=== PATIENT | female | born 1950 | race Caucasian/White ===

== ENCOUNTER 2016-12-11 22:31 | Emergency (ER) | payer BC, OTHER ==
[2016-12-11 22:48] VITALS: BP 124/73; PULSE 64; TEMP 98.3; BMI 28.8
--- NOTE | 2016-12-11 23:10 | PDOC ---
[id number] No Limitations - History of Present Illness Initial Comments: 12/12/16 00:19 Patient is a 66 year old female with no past significant medical history who presents to the ED with right foot laceration. Patient states that she was barefoot in the kitchen taking a plate out of the cabinet as it fell and broke on the counter and pieces of the plate hit the top of her right foot. Patient was able to control bleeding. Patient has no other complaints. She denies fever, chills, chest pain, SOB, diarrhea or hematochezia. <Mamta Bailey - Last Filed: 12/12/16 02:09> <Rina Maldonado - Last Filed: 12/12/16 04:21> - General Chief Complaint: Injury Stated Complaint: LAC TO FOOT Past History <Mamta Bailey - Last Filed: 12/12/16 02:09> - Past Medical History Cardiac Disorders: Yes (cardiac cath x2 2011 and 2015 negative) Diabetes: (early onset) Other medical history: myastenia gravis - Psycho/Social/Smoking Cessation Hx Suicidal Ideation: No Smoking History: Never smoked Hx Alcohol Use: No Drug/Substance Use Hx: No <Rina Maldonado - Last Filed: 12/12/16 04:21> - Past Medical History Allergies/Adverse Reactions: Allergies Allergy/AdvReac Type Severity Reaction Status Date / Time No Known Allergies Allergy Verified 12/11/16 22:49 Home Medications: Ambulatory Orders Prednisone 10 mg PO DAILY 12/11/16 Pyridostigmine [place] [Mestinon] 60 mg PO DAILY 12/11/16 Bacitracin - [Bacitracin Topical Ointment -] 1 applic TP BID #10 g 12/12/16 Cephalexin Monohydrate [Keflex -] 250 mg PO Q6H #28 capsule 12/12/16 Review of Systems - Review of Systems Able to Perform ROS?: Yes Comments:: 12/12/16 00:20 GENERAL/CONSTITUTIONAL: No fever or chills. No weakness. HEAD, EYES, EARS, NOSE AND THROAT: No change in vision. No ear pain or discharge. No sore throat. CARDIOVASCULAR: No chest pain or shortness of breath. RESPIRATORY: No cough, wheezing, or hemoptysis. GASTROINTESTINAL: No nausea, vomiting, diarrhea or constipation. GENITOURINARY: No dysuria, frequency, or change in urination. MUSCULOSKELETAL: No joint or muscle swelling or pain. No neck or back pain. SKIN: +laceration to the right foot. No rash NEUROLOGIC: No headache, vertigo, loss of consciousness, or change in strength/ sensation. ENDOCRINE: No increased thirst. No abnormal weight change. HEMATOLOGIC/LYMPHATIC: No anemia, easy bleeding, or history of blood clots. ALLERGIC/IMMUNOLOGIC: No hives or skin allergy. <Mamta Bailey - Last Filed: 12/12/16 02:09> *Physical Exam - Vital Signs Last Vital Signs Temp Pulse Resp BP Pulse Ox 98.3 F 64 18 124/73 99 12/11/16 22:31 12/11/16 22:31 12/11/16 22:31 12/11/16 22:31 12/11/16 22:31 - Physical Exam Comments: 12/12/16 00:20 GENERAL: Awake, alert, and fully oriented, in no acute distress HEAD: No signs of trauma EYES: PERRLA, EOMI, sclera anicteric, conjunctiva clear ENT: Auricles normal inspection, hearing grossly normal, nares patent, oropharynx clear without exudates. Moist mucosa NECK: Normal ROM, supple, no lymphadenopathy, JVD, or masses LUNGS: Breath sounds equal, clear to auscultation bilaterally. No wheezes, and no crackles HEART: Regular rate and rhythm, normal S1 and S2, no murmurs, rubs or gallops ABDOMEN: Soft, nontender, normoactive bowel sounds. No guarding, no rebound. No masses EXTREMITIES: +small laceration to the top of right foot. Normal range of motion , no edema. No clubbing or cyanosis. No cords, erythema, or tenderness NEUROLOGICAL: Cranial nerves II through XII grossly intact. Normal speech, normal gait SKIN: Warm, Dry, normal turgor, no rashes. <Mamta Bailey - Last Filed: 12/12/16 02:09> - Vital Signs Last Vital Signs Temp Pulse Resp BP Pulse Ox 98.3 F 64 18 124/73 99 12/11/16 22:31 12/11/16 22:31 12/11/16 22:31 12/11/16 22:31 12/11/16 22:31 <Rina Maldonado - Last Filed: 12/12/16 04:21> Procedures - Laceration/Wound Repair Left Dorsal Foot Wound Length: to 2.5 cm Wound Explored: foreign body removed Wound's Depth, Shape: into muscle, linear Irrigated w/ Saline: Yes Betadine Prep: Yes Anesthesia: 1% Lidocaine Amount of Anesthetic (ccs): 3 Wound Repaired With: Sutures Suture Size/Type: 4:0, other (absorbable) Number of Sutures: 5 Sterile Dressing Applied: Yes Splint Applied: No <Rina Maldonado - Last Filed: 12/12/16 04:21> ED Treatment Course - Medications Given in the ED: ED Medications Discontinued Medications Generic Name Dose Route Start Last Admin Trade Name Freq PRN Reason Stop Dose Admin Cephalexin HCl 500 mg 12/11/16 23:11 12/11/16 23:54 Keflex - PO 12/11/16 23:12 500 mg ONCE ONE Administration <Mamta Bailey - Last Filed: 12/12/16 02:09> Medical Decision Making - Medical Decision Making 12/12/16 00:03 Pt was barefoot in her kitchen when a dish fell and broke and a shard cut the dorsal aspect of her foot. She had a lot of bleeding. XR pending. Pt will get tetanus toxoid and she will be given ancef. If the XR is normal, I will suture the lac. 12/12/16 04:21 XR shows a glass FB; I removed a white porcelain shard from her laceration. Pt sutured and dressed with bacitracin and gauze and bandaid. home with PMD follow up. <Rina Maldonado - Last Filed: 12/12/16 04:21> *DC/Admit/Observation/Transfer - Attestations Scribe Attestion: 12/12/16 00:21 Documentation prepared by REGIS Mendiola, acting as medical office receptionist assistant for Rina Maldonado MD. <Mamta Bailey - Last Filed: 12/12/16 02:09> - Discharge Dispostion Admit: No <Rina Maldonado - Last Filed: 12/12/16 04:21> Diagnosis at time of Disposition: Foot laceration - Discharge Dispostion Disposition: HOME Condition at time of disposition: Stable - Prescriptions Prescriptions: Bacitracin - [Bacitracin Topical Ointment -] 1 applic TP BID #10 g Cephalexin Monohydrate [Keflex -] 250 mg PO Q6H #28 capsule - Referrals Referrals: Jordon Barksdale MD [Primary Care Provider] - - Patient Instructions Printed Discharge Instructions: How to Care for a Laceration After Repair, Minor Wounds (Alternative Therapy), How to Care for Absorbable Sutures
[2016-12-11] MEDS ORDERED: DIPHTH,PERTUSS(ACELL),TET VAC 0.5 ML VIAL IM ONE (23:11)
[2016-12-11] MEDS ORDERED: CEPHALEXIN MONOHYDRATE 500 MG CAPSULE (UD) PO ONE (23:11)
[2016-12-11] MEDS ORDERED: CEPHALEXIN MONOHYDRATE 250 MG CAPSULE (FP) ONE (23:47)
== END 2016-12-12 02:35 | disposition home or self-care (01) ==
LOC: JER 22:31
PROC: 0KQV0ZZ Repair Right Foot Muscle, Open Approach (ICD-10-PCS; principal; 2016-12-11)
PROC: 3E0234Z Introduction of Serum, Toxoid and Vaccine into Muscle, Percutaneous Approach (ICD-10-PCS; 2016-12-11)
DX: S91.321A Laceration with foreign body, right foot, initial encounter (principal); W25.XXXA Contact with sharp glass, initial encounter; W45.8XXA Other foreign body or object entering through skin, initial encounter; W22.8XXA Striking against or struck by other objects, initial encounter; Y93.89 Activity, other specified; Y92.010 Kitchen of single-family (private) house as the place of occurrence of the external cause; Y99.8 Other external cause status
CPT/HCPCS: 73630-TC-RT; 99281-25

== ENCOUNTER 2017-08-20 00:36 | Emergency (ER) | payer OTHER ==
--- NOTE | 2017-08-20 00:43 | PDOC ---
History of Present Illness - General Chief Complaint: Pain, Acute Stated Complaint: RLQ PAIN Time Seen by Provider: 08/20/17 00:39 - History of Present Illness Initial Comments: This 67-year-old woman with a history of myasthenia gravis and SVT, for which she underwent ablation therapy at [facility] 2 days ago presents with right lower quadrant abdominal/pelvic pain for the last day. Pain is not accompanied by nausea/vomiting, fever/chills or constipation/diarrhea. She first became aware of the pain earlier today and severity has increased progressively. She has not had dysuria or hematuria, although she has been urinating frequently in recent days. No history of renal colic or pyelonephritis. She denies lower extremity pain/paresthesias or numbness. Patient states that during the ablation therapy, both femoral arteries were accessed. Since patient was sedated during the procedure, she is not sure which side was actually used for the procedure Past History - Past Medical History Allergies/Adverse Reactions: Allergies Allergy/AdvReac Type Severity Reaction Status Date / Time No Known Allergies Allergy Verified 08/20/17 01:11 Home Medications: Ambulatory Orders Prednisone 20 mg PO DAILY 12/11/16 Pyridostigmine [place] [Mestinon] 60 mg PO DAILY 12/11/16 Amlodipine Besylate [Norvasc -] 10 mg PO DAILY 08/20/17 Cephalexin Monohydrate [Keflex -] 50 mg PO DAILY 08/20/17 Metoprolol Succinate [Toprol Xl -] 50 mg PO BID 08/20/17 Olmesartan Medoxomil [Benicar (Nf)] 20 mg PO DAILY 08/20/17 Oxycodone HCl/Acetaminophen [Percocet 5-325 mg Tablet] 1 tab PO Q6H PRN #10 tablet MDD 3 tabs 08/20/17 Sulfamethoxazole/Trimethoprim [Bactrim Ds -] 1 tab PO BID #6 tablet 08/20/17 Cardiac Disorders: Yes (cardiac cath x2 2011 and 2015 negative) Diabetes: (early onset) - Suicide/Smoking/Psychosocial Hx Smoking History: Never smoked Hx Alcohol Use: No Drug/Substance Use Hx: No Review of Systems - Review of Systems Able to Perform ROS?: Yes Comments:: 12 point review of systems is negative except for what is noted in the history of present illness *Physical Exam - Physical Exam Comments: GENERAL: Adult female, intermittently in severe pain in right lower abdomen but alert and oriented 3 HEAD: Normal with no signs of trauma. EYES: PERRLA, EOMI, sclera anicteric, conjunctiva clear. ENT: Ears normal, nares patent, oropharynx clear without exudates. Dry mucous membranes. NECK: Normal range of motion, supple without lymphadenopathy, JVD, or masses. LUNGS: Breath sounds equal, clear to auscultation bilaterally. No wheezes, and no crackles. HEART:Regular rate and rhythm, normal S1 and S2 without murmur, rub or gallop. ABDOMEN:.normal bowel sounds, moderate right lower quadrant tenderness without guarding,tenderness or rebound.No masses No distention. EXTREMITIES: Normal range of motion, no edema. No clubbing or cyanosis. No erythema, or tenderness. NEUROLOGICAL: Cranial nerves II through XII grossly intact. Normal speech. No focal neurological deficits. MUSCULOSKELETAL: Back non-tender to palpation, no CVA tenderness SKIN: Warm, Dry, normal turgor, no rashes or lesions noted. ED Treatment Course - LABORATORY CBC & Chemistry Diagram: 08/20/17 00:37 08/20/17 00:37 Progress Note - Progress Note Progress Note: This 67-year-old woman on chronic prednisone therapy for her myasthenia is gravis and 2 days s/p ablation therapy for SVT, presents with 1 day history of right lower quadrant pain on accompanied by associated symptoms. Exam as noted shows some localized tenderness in the area without peritoneal irritation signs. Laboratory evaluation and noncontrast abdominal/pelvic CT performed: CT is normal WBCs are slightly elevated at 12,200 with predominance of neutrophils; remainder of the CBC is normal. Chemistry profile is essentially normal except for slightly elevated up with phosphatase of 128. Urinalysis shows white blood cells(139) and a few rbc's with rare bacteria . Urine C&S sent Patient had some relief after Toradol 30 mg IV and complete relief after Dilaudid 0.5 mg IV Since there is no evidence of acute appendicitis, abscess, vascular injury, hydro-nephrosis or ureteronephrosis, possibility of urinary tract infection is present in light of patient's frequent urination (although cysts is been going on for quite a while). Pending urine culture and sensitivity results, patient will be started empirically on Bactrim DS twice a day for 3 days with first dose given here in the emergency room(sulfa drugs being safe in [place] and patient not having any previous side effects from Bactrim) *DC/Admit/Observation/Transfer Diagnosis at time of Disposition: Lower abdominal pain - Discharge Dispostion Disposition: HOME Condition at time of disposition: Stable - Prescriptions Prescriptions: Oxycodone HCl/Acetaminophen [Percocet 5-325 mg Tablet] 1 tab PO Q6H PRN #10 tablet MDD 3 tabs PRN Reason: Severe Pain Sulfamethoxazole/Trimethoprim [Bactrim Ds -] 1 tab PO BID #6 tablet - Referrals - Patient Instructions Printed Discharge Instructions: DI for Abdominal Pain-Adult Additional Instructions: Drink plenty of water Bactrim DS 1 tablet twice a day for 3 days Continue other medications as prescribed Ibuprofen as needed for acco-fm-lbryleqp pain Percocet 5/325 up to 3 tabs a day as needed for severe pain Return to ER if you have persistent ,severe pain or develop fever/vomiting Follow-up with your doctor within the next 4 days - Post Discharge Activity
[2017-08-20] MEDS ORDERED: KETOROLAC TROMETHAMINE 30 MG/1 ML VIAL IVPUSH ONE (01:48)
[2017-08-20] MEDS ORDERED: KETOROLAC TROMETHAMINE 30 MG/1 ML VIAL ONE (01:56)
[2017-08-20 02:05] VITALS: PULSE 56; TEMP 97.5; BMI 27.8
[2017-08-20] MEDS ORDERED: HYDROmorphone HCL CARPU-JECT 1 MG/1 ML DISP.SYRIN IVPUSH ONE (02:35)
[2017-08-20] MEDS ORDERED: HYDROmorphone HCL CARPU-JECT 1 MG/1 ML DISP.SYRIN ONE (02:35)
[2017-08-20] MEDS ORDERED: ONDANSETRON 4 MG/2 ML VIAL IVPUSH ONE (02:39)
[2017-08-20] MEDS ORDERED: ONDANSETRON 4 MG/2 ML VIAL ONE (02:39)
[2017-08-20 02:56] LABS: BASO % 0.3 % (0-2.0); LYMPH # 0.9 (8-40); MCH 30.5 pg (25.7-33.7); MCHC 33.1 g/dl (32.0-36.0); MEAN CELL VOLUME 92.1 fl (80-96); MEAN PLT VOLUME 8.7 fl (7.5-11.1); MONO # 0.8 # (3.8-10.2); NEUT # 10.4 # (42.8-82.8); NEUT % 85.7 % (42.8-82.8); PLATELET COUNT 268 K/MM3 (134-434); RDW 14.7 % (11.6-15.6); WHITE BLOOD COUNT 12.2 K/mm3 (4.0-10.0)
[2017-08-20 02:58] LABS: URINE APPEARANCE CLOUDY; URINE BLOOD NEGATIVE (NEGATIVE); URINE COLOR AMBER; URINE GLUCOSE (UA) 1+ (NEGATIVE); URINE KETONE TRACE (NEGATIVE); URINE NITRITE NEGATIVE (NEGATIVE); URINE UROBILINOGEN 4.0 E.U/dl mg/dL (0.2-1.0)
[2017-08-20 03:03] LABS: URINE LEUK ESTERASE 2+ (NEGATIVE); URINE PROTEIN 1+ (NEGATIVE)
[2017-08-20 03:05] LABS: URINE BACTERIA RARE /hpf (NONE SEEN); URINE HYALINE CAST 24 /lpf; URINE MUCUS MANY; URINE RBC 3 /hpf (0-3); URINE WBC 139 /hpf (3-5)
[2017-08-20 03:17] LABS: ALK PHOS 128 U/L (45-117); ANION GAP 15 (8-16); CALCIUM 9.1 mg/dL (8.5-10.1); CO2 21 mmol/L (21-32); GLUCOSE,RANDOM 156 mg/dL (74-106); SGOT/AST 16 U/L (15-37); SGPT/ALT 33 U/L (12-78); TOT PROT 6.7 g/dl (6.4-8.2)
[2017-08-20 03:19] VITALS: BP 146/79
[2017-08-20] MEDS ORDERED: SULFAMETHOXAZOLE/TRIMETHOPRIM 800MG/160MG D.S. TABLET PO ONE (03:41)
[2017-08-20] MEDS ORDERED: SULFAMETHOXAZOLE/TRIMETHOPRIM 800MG/160MG D.S. TABLET ONE (03:43)
[2017-08-20 14:11] LABS: URINE LEUK ESTERASE TRACE (NEGATIVE)
== END 2017-08-20 03:48 | disposition home or self-care (01) ==
LOC: FER 00:36
PROC: 3E033NZ Introduction of Analgesics, Hypnotics, Sedatives into Peripheral Vein, Percutaneous Approach (ICD-10-PCS; principal; 2017-08-20)
PROC: 3E0333Z Introduction of Anti-inflammatory into Peripheral Vein, Percutaneous Approach (ICD-10-PCS; 2017-08-20)
PROC: 3E033GC Introduction of Other Therapeutic Substance into Peripheral Vein, Percutaneous Approach (ICD-10-PCS; 2017-08-20)
DX: R10.30 Lower abdominal pain, unspecified (principal); G70.00 Myasthenia gravis without (acute) exacerbation; I47.1 Supraventricular tachycardia; R73.03 Prediabetes
CPT/HCPCS: 36415; 74176-TC; 80053; 81003; 81015; 85025; 87086; 87186; 99282-25

== ENCOUNTER 2017-08-22 13:42 | Emergency (ER) | payer OTHER ==
[2017-08-22 14:31] VITALS: BP 120/102; PULSE 102; TEMP 97.2; BMI 27.8
--- NOTE | 2017-08-22 15:50 | PDOC ---
Attending Attestation - Resident Resident Name: IvonneDaina - ED Attending Attestation I have performed the following: I have examined & evaluated the patient, The case was reviewed & discussed with the resident, I agree w/resident's findings & plan, Exceptions are as noted - HPI HPI: 08/22/17 15:45 67y F s/p ablation afib, myasthenia gravis on chronic steroids and cellcept ( titrating off steroids) present with rash to her abdomen pain, was at [facility] for evaluation of such had CT thta was negative for acute pathology. no f/c, diarrhea/melena, bpr, cp, sob, palpitations, urinary sypmtoms. pts exam noted for mild RLQ tenderness erythemadous rash with some vesicular lesions on her R hip in a dermatomal fashion suspect zoster no signs of dissemniated zoster will tx with antiviral pt in bed 8 and is in iso will dc with close pmd fu I discussed the physical exam findings, ancillary test results and final diagnoses with the patient. I answered all of the patient's questions. The patient was satisfied with the care received and felt comfortable with the discharge plan and treatment plan. The patient will call their primary care physician within 24 hours to arrange follow-up and will return to the Emergency Department with any new, persistent or worsening symptoms. - Physicial Exam PE: 08/23/17 11:31 see above - Medical Decision Making see above Heart Score/ECG Review - ECG Impressions Comment:: 08/22/17 17:02 Twelve-lead EKG was performed and reviewed by me. There is normal sinus rhythm with a normal rate. Rate of 90 Left axis deviation LVH with repolarization abnormality Q waves in inferior leads
[2017-08-22] MEDS ORDERED: morphine CARPU-JECT 2 MG/1 ML DISP.SYRIN IVPUSH ONE (16:21)
[2017-08-22 16:24] LABS: BASO % 0.3 % (0-2.0); EOS % 0.2 % (0-4.5); LYMPH # 0.7 (8-40); MCH 30.5 pg (25.7-33.7); MCHC 33.2 g/dl (32.0-36.0); NEUT # 9.8 # (42.8-82.8); NEUT % 84.6 % (42.8-82.8); PLATELET COUNT 232 K/MM3 (134-434); RDW 14.6 % (11.6-15.6); WHITE BLOOD COUNT 11.5 K/mm3 (4.0-10.0)
[2017-08-22] MEDS ORDERED: morphine CARPU-JECT 10 MG/1 ML DISP.SYRIN ONE (16:24)
[2017-08-22] MEDS ORDERED: ONDANSETRON 4 MG/2 ML VIAL ONE (16:30)
[2017-08-22] MEDS ORDERED: ONDANSETRON 4 MG/2 ML VIAL IVPUSH ONE (16:38)
--- NOTE | 2017-08-22 16:39 | PDOC ---
History of Present Illness - General Chief Complaint: Pain, Acute Stated Complaint: ABD PAIN Time Seen by Provider: 08/22/17 14:40 History Source: Patient Exam Limitations: No Limitations - History of Present Illness Initial Comments: This is a 67 YOF with h/o Past History - Past Medical History Allergies/Adverse Reactions: Allergies Allergy/AdvReac Type Severity Reaction Status Date / Time No Known Allergies Allergy Verified 08/20/17 01:11 Home Medications: Ambulatory Orders Prednisone 20 mg PO DAILY 12/11/16 Pyridostigmine [place] [Mestinon] 60 mg PO DAILY 12/11/16 Amlodipine Besylate [Norvasc -] 10 mg PO DAILY 08/20/17 Cephalexin Monohydrate [Keflex -] 50 mg PO DAILY 08/20/17 Metoprolol Succinate [Toprol Xl -] 50 mg PO BID 08/20/17 Olmesartan Medoxomil [Benicar (Nf)] 20 mg PO DAILY 08/20/17 Oxycodone HCl/Acetaminophen [Percocet 5-325 mg Tablet] 1 tab PO Q6H PRN #10 tablet MDD 3 tabs 08/20/17 Sulfamethoxazole/Trimethoprim [Bactrim Ds -] 1 tab PO BID #6 tablet 08/20/17 Oxycodone HCl/Acetaminophen [Percocet 5-325 mg Tablet] 1 tab PO Q6H PRN #20 tablet MDD 4 08/22/17 Valacyclovir HCl [Valtrex] 1,000 mg PO TID #21 tablet 08/22/17 Cardiac Disorders: Yes (cardiac cath x2 2011 and 2015 negative) COPD: No Diabetes: (early onset) HTN: Yes Hypercholesterolemia: Yes - Suicide/Smoking/Psychosocial Hx Smoking History: Never smoked Have you smoked in the past 12 months: No Information on smoking cessation initiated: No Hx Alcohol Use: No Drug/Substance Use Hx: No Substance Use Type: None *Physical Exam - Vital Signs Last Vital Signs Temp Pulse Resp BP Pulse Ox 97.2 F L 102 H 16 120/102 95 08/22/17 14:05 08/22/17 14:05 08/22/17 14:05 08/22/17 14:05 08/22/17 14:05 ED Treatment Course - LABORATORY CBC & Chemistry Diagram: 08/22/17 16:06 08/22/17 16:06 *DC/Admit/Observation/Transfer Diagnosis at time of Disposition: Zoster Qualifiers: Herpes zoster complications: without complications Qualified Code(s): B02.9 - Zoster without complications - Discharge Dispostion Disposition: HOME Condition at time of disposition: Stable Admit: No - Prescriptions Prescriptions: Oxycodone HCl/Acetaminophen [Percocet 5-325 mg Tablet] 1 tab PO Q6H PRN #20 tablet MDD 4 PRN Reason: Moderate Pain Valacyclovir HCl [Valtrex] 1,000 mg PO TID #21 tablet - Referrals - Patient Instructions Printed Discharge Instructions: DI for Shingles Additional Instructions: You were seen in the ER for right side pain and a rash. You have shingles. We gave you fluids and sent two medications to your pharmacy. Please take the valacyclovir as prescribed. Take the Percocet as prescribed only if you need it for pain. Follow up with your primary doctor in two days. Please return to the ER for any new or worsening concerns like drainage from the rash, pain you cannot control with medications, fever, or other symptoms. - Post Discharge Activity
[2017-08-22 16:55] LABS: ALBUMIN 3.8 g/dl (3.4-5.0); ALK PHOS 144 U/L (45-117); ANION GAP 11 (8-16); BILIRUBIN,TOTAL 0.8 mg/dL (0.2-1.0); CALCIUM 8.8 mg/dL (8.5-10.1); CO2 24 mmol/L (21-32); CREATININE 1.6 mg/dL (0.55-1.02); GLUCOSE,RANDOM 123 mg/dL (74-106); SGOT/AST 26 U/L (15-37); SGPT/ALT 37 U/L (12-78); TOT PROT 6.4 g/dl (6.4-8.2)
[2017-08-22] MEDS ORDERED: SODIUM CHLORIDE 1,000 ML IV ONE (17:39)
--- NOTE | 2017-08-23 13:27 | EKG ---
Test Reason : Blood Pressure : / mmHG Vent. Rate : 090 BPM Atrial Rate : 090 BPM P-R Int : 148 ms QRS Dur : 088 ms QT Int : 356 ms P-R-T Axes : 034 -30 135 degrees QTc Int : 435 ms SINUS RHYTHM WITH PREMATURE ATRIAL COMPLEXES LEFT AXIS DEVIATION LEFT VENTRICULAR HYPERTROPHY WITH REPOLARIZATION ABNORMALITY INFERIOR INFARCT , AGE UNDETERMINED ABNORMAL ECG NO PREVIOUS ECGS AVAILABLE Confirmed by PRAMOD BEAUCHAMP MD ([id number]) on 08/23/2017 1:26:35 PM Referred By: Confirmed By:PRAMOD BEAUCHAMP MD
== END 2017-08-22 21:32 | disposition home or self-care (01) ==
LOC: JER 13:42
PROC: 3E033NZ Introduction of Analgesics, Hypnotics, Sedatives into Peripheral Vein, Percutaneous Approach (ICD-10-PCS; principal; 2017-08-22)
PROC: 3E033GC Introduction of Other Therapeutic Substance into Peripheral Vein, Percutaneous Approach (ICD-10-PCS; 2017-08-22)
PROC: 3E0337Z Introduction of Electrolytic and Water Balance Substance into Peripheral Vein, Percutaneous Approach (ICD-10-PCS; 2017-08-22)
DX: B02.9 Zoster without complications (principal); G70.00 Myasthenia gravis without (acute) exacerbation; I10 Essential (primary) hypertension; R73.03 Prediabetes
CPT/HCPCS: 36415; 80053; 85025; 93005; 93010; 99283-25

== ENCOUNTER → 2017-12-10 | Emergency (ER) | payer OTHER ==
[~2017-12-10] MED LIST: CALCIUM GLUCONATE 10% - 1,000 MG/10 ML VIAL IVPUSH ONE; SODIUM BICARBONATE 8.4% 50 MEQ/50 ML DISP.SYRIN IVPUSH ONE; VASOPRESSIN 20 UNITS/ML VIAL IV ONE; VASOPRESSIN 40 UNITS in SODIUM CHLORIDE 98 ML IVPB SCH
[2017-12-10 03:31] VITALS: TEMP 94.7
--- NOTE | 2017-12-10 03:31 | PDOC ---
History of Present Illness <Rina Maldonado - Last Filed: 12/10/17 03:51> - General History Source: EMS, Unavil. due to pt. cond. - History of Present Illness Initial Comments: 12/10/17 04:24 The patient is a 67 year old female with past medical history of shingles, SVT ( about one week ago through left groin), cardiac cath x2 2011 and 2015 negative, early onset Diabetes, HTN, and Hypercholesterolemia is brought to the ED via EMT declared cardiac arrested. The patient received active ACLS in progress. The patient arrived 40 minutes after in field, she arrived intubated and with cardiac compressions. The ET tube was in proper position. The patients skin was pale, eyes bilaterally dilated pupils secondary to the epinephrine received on the field. The lungs were good with bag valve mask compression. Asystolic off resusc. The abdomen was hyperactive bowel sounds with cardiac compression. No pitting edema was present on the arms or the legs. The rectal temp was 95. The patient never regained conscious. The patient was declared at 3:01am. <Kat Alex - Last Filed: 12/10/17 05:42> - General Chief Complaint: Cardiac Arrest Stated Complaint: CARDIAC ARREST Time Seen by Provider: 12/10/17 03:04 Past History - Past Medical History Cardiac Disorders: Yes (cardiac cath x2 2011 and 2015 negative) COPD: No Diabetes: (early onset) HTN: Yes Hypercholesterolemia: Yes - Suicide/Smoking/Psychosocial Hx Smoking History: Never smoked Have you smoked in the past 12 months: No Hx Alcohol Use: No Drug/Substance Use Hx: No Substance Use Type: None <Rina Maldonado - Last Filed: 12/10/17 03:51> <Kat Alex - Last Filed: 12/10/17 05:42> - Past Medical History Allergies/Adverse Reactions: Allergies Allergy/AdvReac Type Severity Reaction Status Date / Time No Known Allergies Allergy Verified 08/20/17 01:11 Home Medications: Ambulatory Orders Prednisone 20 mg PO DAILY 12/11/16 Pyridostigmine [place] [Mestinon] 60 mg PO DAILY 12/11/16 Amlodipine Besylate [Norvasc -] 10 mg PO DAILY 08/20/17 Cephalexin Monohydrate [Keflex -] 50 mg PO DAILY 08/20/17 Metoprolol Succinate [Toprol Xl -] 50 mg PO BID 08/20/17 Olmesartan Medoxomil [Benicar (Nf)] 20 mg PO DAILY 08/20/17 Oxycodone HCl/Acetaminophen [Percocet 5-325 mg Tablet] 1 tab PO Q6H PRN #10 tablet MDD 3 tabs 08/20/17 Sulfamethoxazole/Trimethoprim [Bactrim Ds -] 1 tab PO BID #6 tablet 08/20/17 Oxycodone HCl/Acetaminophen [Percocet 5-325 mg Tablet] 1 tab PO Q6H PRN #20 tablet MDD 4 08/22/17 Valacyclovir HCl [Valtrex] 1,000 mg PO TID #21 tablet 08/22/17 Review of Systems - Review of Systems Able to Perform ROS?: No (Cardiac arrest ) <Kat Alex - Last Filed: 12/10/17 05:42> *Physical Exam - Vital Signs Last Vital Signs Temp Pulse Resp BP Pulse Ox 94.7 F L 12/10/17 03:31 - Physical Exam Comments: 12/10/17 04:25 GENERAL: Cardiac Arrest HEAD: No signs of trauma EYES: Bilaterally dilated pupils secondary to the Epinephrine. ENT: Moist mucosa LUNGS: good with bag valve mask compression. HEART :Asystolic off resusc. ABDOMEN: Hyperactive bowel sounds with cardiac compression. EXTREMITIES: no edema. No clubbing or cyanosis. No cords, erythema NEUROLOGICAL: cardiac arrest unable to obtain. SKIN: Pale. <Kat Alex - Last Filed: 12/10/17 05:42> ED Treatment Course - Medications Given in the ED: ED Medications Discontinued Medications Generic Name Dose Route Start Last Admin Trade Name Freq PRN Reason Stop Dose Admin Calcium Gluconate 1,000 mg 12/10/17 03:05 12/10/17 03:19 Calcium Gluconate 10% - IVPUSH 12/10/17 03:06 1,000 mg ONCE ONE Administration Sodium Bicarbonate 50 meq 12/10/17 03:05 12/10/17 03:19 Sodium Bicarbonate 8.4% - IVPUSH 12/10/17 03:06 50 meq ONCE ONE Administration <Rina Maldonado - Last Filed: 12/10/17 03:51> - Medications Given in the ED: ED Medications Discontinued Medications Generic Name Dose Route Start Last Admin Trade Name Freq PRN Reason Stop Dose Admin Calcium Gluconate 1,000 mg 12/10/17 03:05 12/10/17 03:19 Calcium Gluconate 10% - IVPUSH 12/10/17 03:06 1,000 mg ONCE ONE Administration Sodium Bicarbonate 50 meq 12/10/17 03:05 12/10/17 03:19 Sodium Bicarbonate 8.4% - IVPUSH 12/10/17 03:06 50 meq ONCE ONE Administration <Kat Alex - Last Filed: 12/10/17 05:42> Medical Decision Making - Critical Care Time Total Critical Care Time (minutes): 30 Critical Care Statement: The care of this patient involved high complexity decision making to prevent further life threatening deterioration of the patient 's condition and/or to evaluate & treat vital organ system(s) failure or risk of failure. - Medical Decision Making 12/10/17 03:33 Pt arrives in cardiac arrest. She was down 10 minutes before EMSarrived and intubated her. SHe had fallen in the house and found her and called EMS > Earlier today she was vomiting in the bathroom. Pt has been getting progressively weaker. notes that she has been falling more often. Pt had shingles diagnosed on her trunk 1 month ago, and he has been complaining of abdominal pain on and off, which has been worked up at [facility], as well as [facility], and everything bad had been ruled out. According to notes from [facility] ER, pt had a cardiac ablation 2 days prior to her visit to [facility] ER. Pt has a PMD [facility]rizarry in [place], but she has not been up to in a few months, as she has been ill with shingles. Pt missed a neurologist appt, and she had another scheduled for January 20. and daughter at the bedside. Pt was coded for 25-40 min in the field, and she came to the ER and was given an extra calcium gluconate and bicarb by ourselves, as well as 40 U vasopressin ( as she received 6 EPI pushed in the field) Blood sugar was 124 in the field and she reecived bicarb and Ca+ in the field also. ETT in place, We were never able to place an OGT. Pt has good breath sounds and good cardiac wave forms with resuscitation. Asystolic off resusc. Pt will be sent to the [place] office. [facility] [facility] accepted the case. Case # [id number]. <Rian Maldonado - Last Filed: 12/10/17 03:51> *DC/Admit/Observation/Transfer <Rina Maldonado - Last Filed: 12/10/17 03:51> - Attestations Scribe Attestion: 12/10/17 04:27 Documentation prepared by Kat Alex, acting as biomedical engineering supervisor for Rina Maldonado MD. <Kta Alex - Last Filed: 12/10/17 05:42> Diagnosis at time of Disposition: Cardiac arrest - Discharge Dispostion Condition at time of disposition:
== END | disposition expired ==
LOC: JER 02:48
PROC: 5A02216 Assistance with Cardiac Output using Other Pump, Continuous (ICD-10-PCS; principal; 2017-12-10)
DX: I46.9 Cardiac arrest, cause unspecified (principal); I25.10 Atherosclerotic heart disease of native coronary artery without angina pectoris; Z98.61 Coronary angioplasty status; I11.9 Hypertensive heart disease without heart failure; E11.9 Type 2 diabetes mellitus without complications; E78.00 Pure hypercholesterolemia, unspecified; Z86.69 Personal history of other diseases of the nervous system and sense organs
CPT/HCPCS: 92950; 96374; 96375; 99282-25